=== PATIENT | female | born 1950 | race Caucasian/White ===

== ENCOUNTER → 2016-12-28 | Day surgery (SDC) | payer MEDICARE ==
[~2016-12-28] VITALS: Ht 170.2 cm; Wt 80.3 kg
[~2016-12-28] MED LIST: ADVAIR 500-501 EACH INH; DILT-XR120 MG PO; DUONEB INH; LASIX40 MG PO; LOPRESSOR25 MG PO; NORCO 5-325 TA1 EACH PO; OXYGEN M-15 INH; PAXIL20 MG PO; PLAQUENIL200 MG PO; PROTONIX40 MG PO; RENAGEL800 MG PO; RENVELA800 MG PO; SEROQUEL25 MG PO; VITAMIN B-121000 MCG PO; VITAMIN D-32000 UNI1 PO; XANAX0.25 MG PO
--- NOTE | ~2016-12-28 | OR ---
PATIENT'S NAME: BEN LARSON [facility] AGE: 66 Y [address] ROOM: [place] [address] [place] [facility] [place]: 12/28/2016 OR/Procedure Report DISCHARGE DATE: FAMILY PHYSICIAN: Adela Lu MD ATTENDING PHYSICIAN: LALO ARRIAZA SURGEON: Lalo Arriaza MD MACHINE SEWER: DATE OF PROCEDURE: 12/28/2016 POSTOPERATIVE DIAGNOSIS: End-stage renal disease. POSTOPERATIVE DIAGNOSIS: End-stage renal disease. PROCEDURES: Left arm brachiocephalic AV fistula. MEDICAL INSURANCE CLAIMS PROCESSOR: OR staff. ANESTHESIA: General. ESTIMATED BLOOD LOSS: 10 mL. OPERATIVE FINDINGS: Good thrill and bruit, and strong radial and ulnar signal at the end of the case. DESCRIPTION OF PROCEDURE: The patient was brought to the operating room, placed under general anesthesia, prepped and draped in a sterile manner. Preoperative time-out was performed. We made a standard incision 2 cm proximal to the antecubital fossa, dissected down to the fascia, incised the fascia in a longitudinal manner. Dissected out the brachial artery in a 360- degree fashion. We then did the same thing for the cephalic vein. We then transected it distally. We gave 5000 units of heparin. Made an arteriotomy, size of 4 mm, and then performed a standard anastomosis from the vein to the artery. Clamps were removed. There was excellent flow into the fistula with good thrill and bruit. This was confirmed with the use of Doppler. Heparin was reversed with protamine. Deep layers were closed with Vicryl, skin was closed with running 4-0 Monocryl. The patient tolerated the procedure well and transferred to recovery room and then home later that day. LALO ARRIAZA MD FKM/modl PATIENT'S NAME: BEN LARSON [facility] AGE: 66 Y [address] ROOM: [place] [address] [place] [facility] [place]: 12/28/2016 OR/Procedure Report DISCHARGE DATE: FAMILY PHYSICIAN: Adela Lu MD ATTENDING PHYSICIAN: LALO ARRIAZA /[id number] d: 12/28/16 2336 t: 12/30/16 0927, OPERATIVE SUMMARY
[2016-12-28 07:23] LABS: BASOPHIL # 0.1 K/uL (0.0-0.2); BASOPHIL % 1.7 %; EOSINOPHIL # 0.6 K/uL (0.0-0.5); EOSINOPHIL % 8.7 %; HEMATOCRIT 31.7 % (33.0-46.0); HEMOGLOBIN 9.8 g/dL (10.0-15.0); IMMATURE GRANULOCYTE % 0.2 %; LYMPHOCYTE # 1.2 K/uL (0.8-4.0); LYMPHOCYTE % 18.4 %; MCH 31.6 pg (27.0-34.0); MCHC 30.9 gm/dL (32.0-36.5); MCV 102.3 fl (83.0-98.0); MONOCYTE # 0.6 K/uL (0.0-1.0); MONOCYTE % 9.7 %; MPV 9.5 fl (9.4-12.4); NEUTROPHIL # (ANC) 4.1 K/uL (1.8-7.8); NEUTROPHIL % 61.3 %; NRBC % 0 /100WBC (0-0.00); PLATELET COUNT 190 K/uL (150-450); RDW-CV 16.1 % (11.9-14.6); WBC 6.6 K/uL (4.0-11.0)
[2016-12-28 07:43] LABS: ALBUMIN 2.9 gm/dL (3.5-5.0); ANION GAP 9.8 (10.0-19.0); CALCIUM 8.9 mg/dL (8.5-10.5); CREATININE 2.3 mg/dL (0.5-1.1); POTASSIUM 3.8 mMol/L (3.7-5.1); TOTAL BILIRUBIN 0.2 mg/dL (0.0-1.5); TOTAL PROTEIN 6.9 g/dL (6.0-8.4)
== END | disposition disaster alternative care site (69) ==
LOC: GPOC 11-28 14:00 → GSDC 06:35
PROVIDERS: Surgery Vascular Surgery
PROC: 03180ZF Bypass Left Brachial Artery to Lower Arm Vein, Open Approach (ICD-10-PCS; principal; 2016-12-28)
DX: I12.0 Hypertensive chronic kidney disease with stage 5 chronic kidney disease or end stage renal disease (principal); N18.6 End stage renal disease; Z87.891 Personal history of nicotine dependence; J44.9 Chronic obstructive pulmonary disease, unspecified; K21.9 Gastro-esophageal reflux disease without esophagitis; Z88.1 Allergy status to other antibiotic agents; Z88.8 Allergy status to other drugs, medicaments and biological substances; Z98.890 Other specified postprocedural states
CPT/HCPCS: J0690; J1644; J2720; J7030

== ENCOUNTER → 2017-03-15 | Day surgery (SDC) | payer MEDICARE ==
[~2017-03-15] VITALS: Ht 160 cm; Wt 80.3 kg
--- NOTE | ~2017-03-15 | OR ---
PATIENT'S NAME: BEN LARSON [facility] AGE: 66 Y [address] ROOM: [place] [address] LOCATION: [facility] [place]MIT DATE: 03/15/2017 OR/Procedure Report DISCHARGE DATE: FAMILY PHYSICIAN: Adela Lu MD ATTENDING PHYSICIAN: JLUIS ARRIAZA SURGEON: Jluis Arriaza MD SILK HANGER: DATE OF PROCEDURE: 03/15/2017 PREOPERATIVE DIAGNOSIS: End-stage renal disease. POSTOPERATIVE DIAGNOSIS: End-stage renal disease. PROCEDURE: Left arm brachiocephalic AV fistula superficialization. MANAGER FILM: JONI Galvez ANESTHESIA: General. ESTIMATED BLOOD LOSS: 20 mL. OPERATIVE FINDINGS: Fistula now located directly into the skin. DESCRIPTION OF PROCEDURE: The patient was brought to the operating room, placed supine on the operating table, placed under general anesthesia, prepped and draped in a sterile manner. Preoperative time-out was performed. The patient received preoperative antibiotics. We made an incision along the length of the cephalic vein after marking it with ultrasound guidance. We dissected down the fascia, incised the fascia in a longitudinal manner. Dissected the vein in a 360-degree fashion ligating and clipping all side branches. We then reapproximated the layers with 2-0 and 3-0 Vicryl. The skin was closed with interrupted nylons over the vein. The vein was now located right below the skin and easily accessible. The patient tolerated the procedure well and transferred to the recovery room and home later that day. JLUIS ARRIAZA MD FKM/modl /[id number] d: 03/15/172039 t: 03/21/17 1543, OPERATIVE SUMMARY
[2017-03-15 06:19] LABS: BASOPHIL # 0.1 K/uL (0.0-0.2); BASOPHIL % 1.1 %; EOSINOPHIL # 0.8 K/uL (0.0-0.5); HEMOGLOBIN 12.4 g/dL (10.0-15.0); IMMATURE GRANULOCYTE % 0.4 %; LYMPHOCYTE # 1.8 K/uL (0.8-4.0); LYMPHOCYTE % 21.6 %; MCH 33.1 pg (27.0-34.0); MCV 103.7 fl (83.0-98.0); MONOCYTE # 0.7 K/uL (0.0-1.0); MONOCYTE % 8.8 %; MPV 9.2 fl (9.4-12.4); NEUTROPHIL # (ANC) 4.8 K/uL (1.8-7.8); NEUTROPHIL % 58.1 %; NRBC % 0 /100WBC (0-0.00); RBC 3.75 M/uL (3.50-5.50); RDW-CV 14.6 % (11.9-14.6); WBC 8.2 K/uL (4.0-11.0)
[2017-03-15 06:21] LABS: HEMATOCRIT 38.9 % (33.0-46.0); MCHC 31.9 gm/dL (32.0-36.5); PLATELET COUNT 313 K/uL (150-450)
[2017-03-15 06:41] LABS: ALBUMIN 3.3 gm/dL (3.5-5.0); ANION GAP 10.2 (10.0-19.0); CALCIUM 9.5 mg/dL (8.5-10.5); POTASSIUM 4.2 mMol/L (3.7-5.1); TOTAL PROTEIN 7.6 g/dL (6.0-8.4)
[2017-03-15 06:48] LABS: TOTAL BILIRUBIN 0.3 mg/dL (0.0-1.5)
== END | disposition disaster alternative care site (69) ==
LOC: GPOC 03-09 09:00 → GSDC 05:17 → GPOC 09:00
PROVIDERS: Surgery Vascular Surgery
PROC: 03WY03Z Revision of Infusion Device in Upper Artery, Open Approach (ICD-10-PCS; principal; 2017-03-15)
DX: I12.0 Hypertensive chronic kidney disease with stage 5 chronic kidney disease or end stage renal disease (principal); N18.6 End stage renal disease; M19.90 Unspecified osteoarthritis, unspecified site; K21.9 Gastro-esophageal reflux disease without esophagitis; F41.9 Anxiety disorder, unspecified; F32.9 Major depressive disorder, single episode, unspecified; D63.8 Anemia in other chronic diseases classified elsewhere; J44.9 Chronic obstructive pulmonary disease, unspecified; Z87.891 Personal history of nicotine dependence; Z96.652 Presence of left artificial knee joint; Z98.890 Other specified postprocedural states; Z99.2 Dependence on renal dialysis; Z98.51 Tubal ligation status; Z79.899 Other long term (current) drug therapy; Z88.8 Allergy status to other drugs, medicaments and biological substances
CPT/HCPCS: J0360; J0690; J2001; J7030